=== PATIENT | female | born 1985 | race Hispanic/Latino ===

== ENCOUNTER 2022-08-03 00:25 | Emergency (ER) | payer OTHER, SELFPAY | END 2022-08-03 02:04 | LOC: CSHERS 00:25 | DX: S00.531A Contusion of lip, initial encounter (principal); S60.511A Abrasion of right hand, initial encounter; F17.210 Nicotine dependence, cigarettes, uncomplicated; V49.9XXA Car occupant (driver) (passenger) injured in unspecified traffic accident, initial encounter | CPT/HCPCS: 99283 ==